=== PATIENT | female | born 1995 | race Two or more races ===

== ENCOUNTER 2017-12-11 03:26 | Observation (INO) | payer BC, SELFPAY ==
[2017-12-11] VITALS (32 sets, daily range): BP systolic 61–125; BP diastolic 30–93; PULSE 64–108; RESP 15–23; TEMP 36.2–37.8; O2SAT 97–100; BMI 36.9
[2017-12-11] MEDS: Dicyclomine 20 MG/2 ML Vial IM (03:40)
[2017-12-11 03:43] LABS: Absolute Lymphocyte Count 3.39 X10^3/ul (0.83-4.51); Absolute Neutrophil Count 4.4 X10^3/uL (2.0-7.7); Basophil# 0.02 X10^3/uL; Basophil% 0.2 % (0-1); Eosinophil# 0.07 X10^3/uL; Eosinophils% 0.8 % (0-5); Hemoglobin 12.8 g/dl (12.0-15.0); Lymphocyte # 3.39 X10^3/ul (4.0); Lymphocyte % 40.3 % (19-41); Mean Corp Hgb Conc 33.7 g/gl (32-36); Mean Corpuscular Hgb 26.5 pg (27.0-32.0); Mean Corpuscular Volume 78.7 fL (81-99); Monocyte# 0.56 X10^3/uL; Monocyte% 6.7 % (0-10); Neutrophil # 4.35 X10^3/uL (2.7-7.7); Neutrophil % 51.8 % (47-70); Platelet Count 243 K/mm3 (150-450); RBC Distribution Width CV 13.5 % (11.6-14.6); RBC Distribution Width SD 38.4 fl (35.1-43.9); Red Blood Count 4.83 M/mm3 (4.2-5.4); White Blood Count 8.4 K/mm3 (4.4-11.0)
--- NOTE | 2017-12-11 03:43 | ED.VIS.GEN ---
History of Present Illness Chief Complaint: Abd Pain Informant: Patient Onset: Hours - less than 1 Context: Sudden Onset - while sleeping; woke her up Timing: Continuous Quality: ache Location: across lower-mid abd, nonlateralizing Current Severity: Severe Maximum Severity: Severe Worsened by: nothing Relieved by: nothing Associated Symptoms: nausea and dry heaves Narrative: No urinary symptoms. Last normal bowel movement was less than 24 hours ago and was unremarkable without blood or melena. No vaginal discharge. Last normal menstrual period was about 3 weeks ago and unremarkable, she has been regular. She states she is trying to get with her . She feels some spasms in her torso, but does not think this radiates into her back. Did not eat anything unusual this past day. Prior similar symptoms: No Past Medical History - Allergies and Home Meds Allergies/Adverse Reactions: Allergies No Known Allergies Allergy (Verified 12/11/17 03:46) Home Medications: Home Medications Medication Instructions Recorded NK [NK] 12/11/17 Primary Care Physician: Care Physician,No Primary [NON-STAFF] - Past Medical History: None Surgical History: no surgical history Lives: Spouse/ Significant Other Smoking Status: Never smoker Drugs: None Review of Systems All systems negative except as indicated General: Denies: Fever Cardiovascular: Denies: Chest pain, Palpitations, Heart racing Respiratory: Denies: Dyspnea Gastrointestinal: Reports: Abdominal pain, Nausea, Vomiting. Denies: Diarrhea, Constipation, Melena, Hematochezia Genitourinary: Denies: Dysuria, Hematuria, Frequency Musculoskeletal: Denies: Neck pain, Back pain, Extremity Pain Physical Exam Vital Signs/Narrative: Vital Signs Temp Pulse Resp BP Pulse Ox 12/11/17 03:27 97.8 F 74 17 118/81 H 100 Inital Vital Signs reviewed: Yes General: Well nourished, Well developed, - - mild painful distress Head: Normocephalic, Atraumatic Eyes: Perrl, EOMI ENT: Moist mucous membranes, No rhinorrhea Neck: Supple, Nontender Cardiovascular: Regular rate, Regular rhythm, No murmurs Respiratory: No distress, CTA bilaterally, Chest nontender Abdomen: Soft, Nondistended, Normal bowel sounds, No masses, Tender - diffusely. Negative for: Guarding, Rebound tenderness Back: Nontender, Normal Inspection. Negative for: CVA tenderness Extremities: Nontender, No edema Skin: Normal color, No rash Neurological: Alert, Oriented x3, Cranial nerves II-XII grossly intact, Normal Strength, Normal Sensation Psychological: - - anxious Diagnostic/Tx/Re-eval Laboratory Tests 12/11/17 12/11/17 12/11/17 03:34 03:34 03:34 WBC 8.4 RBC 4.83 Hgb 12.8 Hct 38.0 MCV 78.7 L MCH 26.5 L MCHC 33.7 RDW 13.5 RDW Differential 38.4 Plt Count 243 MPV 11.0 Immature Gran % (Auto) 0.200 Neut % (Auto) 51.8 Lymph % (Auto) 40.3 [place] % (Auto) 6.7 Eos % (Auto) 0.8 Baso % (Auto) 0.2 Absolute Neuts (auto) 4.4 Absolute Lymphs (auto) 3.39 Total Counted Not Reportable Sodium 139 Potassium 3.5 Chloride 105 Carbon Dioxide 27.0 Anion Gap 7 BUN 11 Creatinine 0.79 Estim Creat Clear Calc 98.81 Est GFR (MDRD) Af Amer 114 Est GFR (MDRD) Non-Af 95 BUN/Creatinine Ratio 13.9 Glucose 90 Calcium 8.9 Total Bilirubin 0.20 AST 15 ALT 17 Alkaline Phosphatase 40 L Total Protein 7.1 Albumin 3.5 Globulin 3.6 Albumin/Globulin Ratio 1.0 Lipase 136 HCG, Quant Serum , Qual POSITIVE H 12/11/17 03:34 WBC RBC Hgb Hct MCV MCH MCHC RDW RDW Differential Plt Count MPV Immature Gran % (Auto) Neut % (Auto) Lymph % (Auto) [place] % (Auto) Eos % (Auto) Baso % (Auto) Absolute Neuts (auto) Absolute Lymphs (auto) Total Counted Sodium Potassium Chloride Carbon Dioxide Anion Gap BUN Creatinine Estim Creat Clear Calc Est GFR (MDRD) Af Amer Est GFR (MDRD) Non-Af BUN/Creatinine Ratio Glucose Calcium Total Bilirubin AST ALT Alkaline Phosphatase Total Protein Albumin Globulin Albumin/Globulin Ratio Lipase HCG, Quant 4798 H Serum , Qual - Medical Decision Making Patient initially had crampy lower abdominal/pelvic pain, but now is saying that it is starting to go up her right side and she is feeling pain radiating into her right shoulder. Labs were drawn and she was given some GI medications and Zofran. This did not make a big difference in her pain, and prior to giving her anything else, she started dropping her blood pressure. The fluid bolus was ordered and given. However, her pressure dropped into the 60s and she appeared very pale. Another fluid bolus was ordered and started, all of her labs appeared normal but the serum test was still pending, she had not given us any urine yet. While I was evaluating the patient, the test returned and it is positive. I called in ultrasound emergently, and I also called Dr. Lund, building construction superintendent for gynecology, she came in and we performed basically at bedside fast exam with the ED screening ultrasound machine. She does not have any fluid in Morison's pouch, but upon careful evaluation around the uterus, she does appear to have some pockets of fluid that do not appear to be intraluminal. Therefore, Dr. Lund prefers to take her to the OR for laparoscopy and definitive diagnosis of possible ruptured ectopic. At this time, we are canceling the cnc maintenance technician because of that. The patient is feeling much better and her pressure is now around 100, we are keeping her monitored closely in the department. Discussed with (s)/Consults: Kevon Critical care time (excluding procedures): 30-74 minutes - 35 min ED Disposition - Plan for ED Patient: Disposition: Acute Care Hospital [facility] Chief Complaint: Abd Pain Diagnosis: Pelvic pain affecting in first trimester, antepartum, Transient hypotension
[2017-12-11] MEDS: Ondansetron 4 MG/2 ML Vial IV (03:44)
[2017-12-11 03:46] LABS: POSITIVE COUNT NO; POSITIVE DIFFERENTIAL NO; POSITIVE MORPHOLOGY NO
--- NOTE | 2017-12-11 03:47 | ED.DCSUM_ITS ---
History of Present Illness Chief Complaint: Abd Pain Informant: Patient Onset: Hours - less than 1 Context: Sudden Onset - while sleeping; woke her up Timing: Continuous Quality: ache Location: across lower-mid abd, nonlateralizing Current Severity: Severe Maximum Severity: Severe Worsened by: nothing Relieved by: nothing Associated Symptoms: nausea and dry heaves Narrative: No urinary symptoms. Last normal bowel movement was less than 24 hours ago and was unremarkable without blood or melena. No vaginal discharge. Last normal menstrual period was about 3 weeks ago and unremarkable, she has been regular. She states she is trying to get with her . She feels some spasms in her torso, but does not think this radiates into her back. Did not eat anything unusual this past day. Prior similar symptoms: No Past Medical History - Allergies and Home Meds Allergies/Adverse Reactions: Allergies No Known Allergies Allergy (Verified 12/11/17 03:46) Home Medications: Home Medications Medication Instructions Recorded NK [NK] 12/11/17 Primary Care Physician: Care Physician,No Primary [NON-STAFF] - Past Medical History: None Surgical History: no surgical history Lives: Spouse/ Significant Other Smoking Status: Never smoker Drugs: None Review of Systems All systems negative except as indicated General: Denies: Fever Cardiovascular: Denies: Chest pain, Palpitations, Heart racing Respiratory: Denies: Dyspnea Gastrointestinal: Reports: Abdominal pain, Nausea, Vomiting. Denies: Diarrhea, Constipation, Melena, Hematochezia Genitourinary: Denies: Dysuria, Hematuria, Frequency Musculoskeletal: Denies: Neck pain, Back pain, Extremity Pain Physical Exam Vital Signs/Narrative: Vital Signs Temp Pulse Resp BP Pulse Ox 12/11/17 03:27 97.8 F 74 17 118/81 H 100 Inital Vital Signs reviewed: Yes General: Well nourished, Well developed, - - mild painful distress Head: Normocephalic, Atraumatic Eyes: Perrl, EOMI ENT: Moist mucous membranes, No rhinorrhea Neck: Supple, Nontender Cardiovascular: Regular rate, Regular rhythm, No murmurs Respiratory: No distress, CTA bilaterally, Chest nontender Abdomen: Soft, Nondistended, Normal bowel sounds, No masses, Tender - diffusely. Negative for: Guarding, Rebound tenderness Back: Nontender, Normal Inspection. Negative for: CVA tenderness Extremities: Nontender, No edema Skin: Normal color, No rash Neurological: Alert, Oriented x3, Cranial nerves II-XII grossly intact, Normal Strength, Normal Sensation Psychological: - - anxious Diagnostic/Tx/Re-eval Laboratory Tests 12/11/17 12/11/17 12/11/17 03:34 03:34 03:34 WBC 8.4 RBC 4.83 Hgb 12.8 Hct 38.0 MCV 78.7 L MCH 26.5 L MCHC 33.7 RDW 13.5 RDW Differential 38.4 Plt Count 243 MPV 11.0 Immature Gran % (Auto) 0.200 Neut % (Auto) 51.8 Lymph % (Auto) 40.3 [facility] % (Auto) 6.7 Eos % (Auto) 0.8 Baso % (Auto) 0.2 Absolute Neuts (auto) 4.4 Absolute Lymphs (auto) 3.39 Total Counted Not Reportable Sodium 139 Potassium 3.5 Chloride 105 Carbon Dioxide 27.0 Anion Gap 7 BUN 11 Creatinine 0.79 Estim Creat Clear Calc 98.81 Est GFR (MDRD) Af Amer 114 Est GFR (MDRD) Non-Af 95 BUN/Creatinine Ratio 13.9 Glucose 90 Calcium 8.9 Total Bilirubin 0.20 AST 15 ALT 17 Alkaline Phosphatase 40 L Total Protein 7.1 Albumin 3.5 Globulin 3.6 Albumin/Globulin Ratio 1.0 Lipase 136 HCG, Quant Serum , Qual POSITIVE H 12/11/17 03:34 WBC RBC Hgb Hct MCV MCH MCHC RDW RDW Differential Plt Count MPV Immature Gran % (Auto) Neut % (Auto) Lymph % (Auto) [facility] % (Auto) Eos % (Auto) Baso % (Auto) Absolute Neuts (auto) Absolute Lymphs (auto) Total Counted Sodium Potassium Chloride Carbon Dioxide Anion Gap BUN Creatinine Estim Creat Clear Calc Est GFR (MDRD) Af Amer Est GFR (MDRD) Non-Af BUN/Creatinine Ratio Glucose Calcium Total Bilirubin AST ALT Alkaline Phosphatase Total Protein Albumin Globulin Albumin/Globulin Ratio Lipase HCG, Quant 4798 H Serum , Qual - Medical Decision Making Patient initially had crampy lower abdominal/pelvic pain, but now is saying that it is starting to go up her right side and she is feeling pain radiating into her right shoulder. Labs were drawn and she was given some GI medications and Zofran. This did not make a big difference in her pain, and prior to giving her anything else, she started dropping her blood pressure. The fluid bolus was ordered and given. However, her pressure dropped into the 60s and she appeared very pale. Another fluid bolus was ordered and started, all of her labs appeared normal but the serum test was still pending, she had not given us any urine yet. While I was evaluating the patient, the test returned and it is positive. I called in ultrasound emergently, and I also called Dr. Lund, production technologist for gynecology, she came in and we performed basically at bedside fast exam with the ED screening ultrasound machine. She does not have any fluid in Morison's pouch, but upon careful evaluation around the uterus, she does appear to have some pockets of fluid that do not appear to be intraluminal. Therefore, Dr. Lund prefers to take her to the OR for laparoscopy and definitive diagnosis of possible ruptured ectopic. At this time, we are canceling the senior games technician because of that. The patient is feeling much better and her pressure is now around 100, we are keeping her monitored closely in the department. Discussed with (s)/Consults: Kevon Critical care time (excluding procedures): 30-74 minutes - 35 min ED Disposition - Plan for ED Patient: Disposition: Acute Care Hospital [facility] Chief Complaint: Abd Pain Diagnosis: Pelvic pain affecting in first trimester, antepartum, Transient hypotension
[2017-12-11 04:08] LABS: AST(SGOT) 15 U/L (15-37); Alanine Aminotransfer ALT/SGPT 17 U/L (13-56); Albumin, Serum 3.5 g/dL (3.2-5.0); Alkaline Phosphatase 40 U/L (45-117); Anion Gap 7 (5-15); BUN 11 mg/dL (7-18); BUN/Creat Ratio 13.9 RATIO (10-20); Calcium,Total 8.9 mg/dL (8.5-10.1); Chloride 105 mmol/L (98-107); Creatinine, Serum 0.79 mg/dL (0.55-1.02); EST Glomerular Filtration Rate 95 mL/min (>60); Est Glom Filt Rate - Afr Amer 114 mL/min (>60); Estimated Creatinine Clearance 98.81 ml/min; Globulin 3.6 g/dL (2.2-4.2); Glucose 90 mg/dL (74-106); Lipase 136 U/L (73-393); Potassium 3.5 mmol/L (3.5-5.1); Protein, Total 7.1 g/dL (6.4-8.2); Sodium Level 139 mmol/L (136-145)
[2017-12-11 04:36] LABS: Pregnancy, Serum, hCG Quali. POSITIVE Negative (0-9 Nonpreg)
[2017-12-11] MEDS: 0.9% Normal Saline 1,000 ML 999 ML IV ×2 (04:40→05:01)
[2017-12-11 05:11] LABS: hCG Titer Quant., Serum 4798 mIU/mL (<9 non-preg)
--- NOTE | 2017-12-11 05:39 | PCM.HP.OB ---
History Date of Admission: 12/11/17 Gestational age: unknown History of this : 22 y.o. G 2 P 1 ws not aware she was till she showed up in the ER with pain starting in the RLQ and radiating all over, than woke her early this morning. She had felt well up till last night, and believes her LMP was 3 weeks ago. Pertinent Past Medical History: x 1 Neck surgery, remote Allergies No Known Allergies Allergy (Verified 12/11/17 03:46) Current Medications: No home meds Sodium Chloride () 1,000 mls @ 999 mls/hr IV .Q1H1M ONE Stop: 12/11/17 06:00 Last Admin: 12/11/17 05:01 Dose: 999 mls/hr Review of Systems Constitutional: Denies: Chills, Fever, Weight Change HEENT: Denies: Head Aches, Sinus Congestion, Sinus Drainage Cardiovascular: Denies: Chest Pain, Palpitations Respiratory: Denies: Cough, Shortness of breath at rest, Sputum production Gastrointestinal: Reports: Abdominal Pain Genitourinary: Denies: Dysuria Neurological: Denies: Numbness, Tingling, Focal weakness Psychiatric: Denies: Anxiety, Depression, Homicidal Ideations, Suicidal Ideations Hematologic/ Lymphatic: Denies: Easy Bruising, Easy Bleeding Physical Exam Vitals: Vital Signs Temp Pulse Resp BP Pulse Ox 97.8 F 75 21 H 105/69 100 12/11/17 03:27 12/11/17 05:07 12/11/17 05:07 12/11/17 05:07 12/11/17 05:07 General: Alert, Oriented x3, Cooperative, No apparent distress Cardiovascular: Regular rate Lungs: Clear to auscultation Abdomen: Obese, Tender Extremities:: No edema Assessment/Plan Active and Suspected Problems Pelvic pain affecting in first trimester, antepartum (Acute) Transient hypotension (Acute) 1. Hypotension 2. RLQ pain becoming diffuse 3. Severe pallor 4. HCG of 5000 Bedside U/S shows heterogenous mass with fluid components in RLQ and uterus with echogenic endometrium but no sac ( transabdominal) P?? Ruptured ectopic most likely. Emergent laparoscopy with possible salpingectomy and or laparotomy Patient and counseled as to need for surgery and risks and benefits of the same. They are willing to proceed
--- NOTE | 2017-12-11 06:00 | FAL_PTH ---
PATIENT: FLORA SARKAR LOC: MS3 U#:[id number] AGE/SX: 22/F ROOM: MS318 RE12/12/[address]: Dr. Kathya Lund MD : 1995 BED: 1 DIS: 12/12/2017 SPEC #: [id number] RECD: 12/13/17 09:21 STATUS: ADAMA RERamirez #: [id number] PATEL: 12/11/17 06:[address]: Kathya Lund DEPT: SURGICAL PATHOLOGY RECD BY: Mitch Dale ENTERED: 12/13/17 12:22 SP TYPE: ECTOPIC OTHR DR: Domi Talavera DO Tissues: ECTOPIC PREG Procedures: Surgery Specimen Level IV HEADER OPERATION: Laparoscopic left partial salpingectomy, ectopic PRE-OP DIAGNOSIS: Ectopic TISSUE SUBMITTED: Left partial fallopian tube MICROSCOPIC DIAGNOSIS Left partial fallopian tube, partial salpingectomy: Fallopian tube with decidua, a few immature chorionic villi and intermediate trophoblasts (ectopic ). RITA:shelly 12/14/17 MICROSCOPIC DESCRIPTION Slides are reviewed. GROSS DESCRIPTION Received in fixative is one container labeled with the patient's name and designated left partial fallopian tube. The specimen consists of a piece of moreau-pink soft tissue measuring 1.5 x 1 x 0.5 cm. Sections do not reveal any mass lesion. The specimen is serially sectioned and submitted entirely in one cassette. / RITA:shelly 12/13/17 TC:5 CPT: 65819
[2017-12-11] MEDS: Bupivacaine 0.25% 30 ML Vial (07:57)
[2017-12-11] MEDS: DiphenhydrAMINE 50 MG/ML Syringe 25 MG IV (08:15)
--- NOTE | 2017-12-11 08:28 | PCM.OPRPT ---
Report of Operation Date of Procedure: 12/11/17 Pre-Operative Diagnosis: 1. Suspected ruptured Ectopic . 2. Hypotension. 3. Abdominal pain Post-Operative Diagnosis: 1. Ruptured Ectopic . 2. Hypotension. 3. Abdominal pain. 4. Large hemoperitoneum Surgery/Procedure Performed:: Left partial sapingectomy. Evacuation of hemoperitoneum -1000cc Description of Surgical Findings:: Large hemoperitoneum with clotting, bleeding from ruptured left etopic . cad engineer: Derick - Daniel Type of Anesthesia:: General - DR. Crenshaw --> Dr. Juan Francisco Blair Specimen's removed: Partial left fallopian tube Drains: Aguila catheter Estimated Blood Loss (mL): 10 Fluids Replaced: 2600 Description of Procedure: The patient was quickly prepped and draped in the dorsal extended ski position and a Aguila catheter placed, as well as a sponge on stick in the vagina. Of note was that the abdomen was visibly more distended than it had been earlier in the ER After glove change, a 5 mm incision was made in the umbilicus and a Verres needle inserted. After confirming placement with a hanging drop method, the 5 mm trochar was inserted and the laparoscope used to confirm intra-abdominal placement with a large hemoperitoneum and blood in both paracolic gutters. The patient was placed in Trendelenberg and a 10mm port placed in the left and a 5mm port in the Right lower quadrant under direct visualisation. The enlarged medial aspect of the left tube was easily seen with a tear in it and active bleeding. The Kleppingers were used to cauterize both proximal and distal portions of the etopic, to secure hemostasis within 5 minutes of peritoneal entry. The rest of mesosalpinx underlying the ectopic was then cauterized and cut sequentially and the specimen brought out. Attention was turned to evacuating the hemoperitoneum and clots which required the use of the 10 and 5mm suction aspirators and the large scoop to break up clots. The patient had to be moved out of Trendelenberg into reverse several times, to help with the evacuation. 2100 ml of Ringers solution was used for rinsing out and breaking up clots, and 3150 ml of bloody fluid was aspirated. Most of the hemoperitoneum was evacuated. The patient started to drop her blood pressures intra-operatively, though her pulse remained under 100. A request for blood transfusion was made in the OR, and an H&H drawn. The intraperitoneal pressure was reduced to 8mm of Hg and inspection made to ensure hemostasis at the salpingectomy site. The Rt adnexa was inspected and appeared normal. All instruments were withdrawn and incisions repaired with 0 Vicryl to the LLQ fascia, and 3-0 Vicryl to all incisions subcuticularly. The patient remained stable as she was taken to the Recovery room where plans were being made for transfusion.
[2017-12-11 08:29] LABS: AST(SGOT) 10 U/L (15-37); Alanine Aminotransfer ALT/SGPT 10 U/L (13-56); Albumin, Serum 2.1 g/dL (3.2-5.0); Alkaline Phosphatase 24 U/L (45-117); Anion Gap 7 (5-15); BUN 12 mg/dL (7-18); BUN/Creat Ratio 17.8 RATIO (10-20); Calcium,Total 6.5 mg/dL (8.5-10.1); Chloride 115 mmol/L (98-107); Creatinine, Serum 0.68 mg/dL (0.55-1.02); EST Glomerular Filtration Rate 113 mL/min (>60); Est Glom Filt Rate - Afr Amer 137 mL/min (>60); Estimated Creatinine Clearance 114.79 ml/min; Globulin 2.1 g/dL (2.2-4.2); Glucose 150 mg/dL (74-106); Potassium 4.6 mmol/L (3.5-5.1); Protein, Total 4.2 g/dL (6.4-8.2); Sodium Level 143 mmol/L (136-145); Total Bilirubin < 0.10 mg/dL (0.20-1.00)
[2017-12-11 09:14] LABS: Hematocrit 24.6 % (37-47); Hemoglobin 7.9 g/dl (12.0-15.0)
[2017-12-11] MEDS: Lactated Ringers 1,000 ML 125 ML IV ×2 (10:03→18:00)
[2017-12-11] MEDS: Morphine 4 MG/ML Syringe 2 MG IV ×4 (11:56→20:42)
[2017-12-11] MEDS: Ibuprofen 600 MG Tablet PO ×2 (13:17→20:44)
[2017-12-11] MEDS: Cefazolin 1 GM/50 ML BAG IV ×2 (14:34→21:41)
[2017-12-11 15:39] LABS: Hematocrit 28.1 % (37-47); Hemoglobin 9.4 g/dl (12.0-15.0); Mean Corp Hgb Conc 33.5 g/gl (32-36); Mean Corpuscular Hgb 27.4 pg (27.0-32.0); Mean Corpuscular Volume 81.9 fL (81-99); Platelet Count 171 K/mm3 (150-450); RBC Distribution Width CV 13.5 % (11.6-14.6); RBC Distribution Width SD 39.2 fl (35.1-43.9); Red Blood Count 3.43 M/mm3 (4.2-5.4); White Blood Count 11.2 K/mm3 (4.4-11.0)
[2017-12-11 15:40] LABS: Absolute Lymphocyte Count 1.65 X10^3/ul (0.83-4.51); Absolute Neutrophil Count 8.8 X10^3/uL (2.0-7.7); Basophil# 0.01 X10^3/uL; Basophil% 0.1 % (0-1); Lymphocyte # 1.65 X10^3/ul (4.0); Lymphocyte % 14.8 % (19-41); Mean Platelet Vol. 11.2 fl (6.2-12.0); Monocyte# 0.63 X10^3/uL; Monocyte% 5.6 % (0-10); Neutrophil # 8.83 X10^3/uL (2.7-7.7); Neutrophil % 79.1 % (47-70); POSITIVE COUNT NO; POSITIVE DIFFERENTIAL NO; POSITIVE MORPHOLOGY NO
[2017-12-11 21:06] LABS: Bacteria 0 SEEN /hpf (None Seen); Mucous, Urine 0 SEEN /hpf (<or=2+); Red Blood Cells-Urine 0 SEEN /hpf (0-5)
[2017-12-11 21:07] LABS: Color, Urine Straw (Yellow); Glucose, Dipstick Normal (Normal); Ketone-Dipstick Negative (Negative); Leukocyte Esterase-Dipstick 100 /ul (Negative); Nitrite-Dipstick Negative (Negative); Occult Blood-Urine 10 /ul (Negative); Protein-Dipstick Negative (Negative); Urine Bilirubin Dipstick Negative (Negative); Urine Clarity Clear (Clear); Urine Urobilinogen Normal (Normal)
[2017-12-11 21:17] LABS: Squamous Epithelial Cells - UA 0-5 SEEN /hpf (5-10); White Blood Cells 0-5 SEEN /hpf (0-5)
[2017-12-12 02:00] VITALS: BP 104/62; PULSE 90; RESP 16; TEMP 37.1; O2SAT 98
[2017-12-12] MEDS: Morphine 4 MG/ML Syringe 2 MG IV (02:39)
[2017-12-12] MEDS: Lactated Ringers 1,000 ML 75 ML IV (03:04)
--- NOTE | 2017-12-12 03:24 | NURSING ---
Pt. up with this nurse walking halls. Tolerated well.
[2017-12-12] MEDS: Ibuprofen 600 MG Tablet PO (06:34)
[2017-12-12 06:46] LABS: Hematocrit 26.6 % (37-47); Hemoglobin 8.7 g/dl (12.0-15.0); Mean Corp Hgb Conc 32.7 g/gl (32-36); Mean Corpuscular Hgb 26.7 pg (27.0-32.0); Mean Corpuscular Volume 81.6 fL (81-99); Mean Platelet Vol. 10.9 fl (6.2-12.0); Platelet Count 157 K/mm3 (150-450); RBC Distribution Width CV 13.9 % (11.6-14.6); RBC Distribution Width SD 41.4 fl (35.1-43.9); Red Blood Count 3.26 M/mm3 (4.2-5.4); White Blood Count 8.4 K/mm3 (4.4-11.0)
[2017-12-12 06:56] LABS: Scan Indicated on CBC? Y/N NO
[2017-12-12 07:41] LABS: hCG Titer Quant., Serum 1006 mIU/mL (<9 non-preg)
[2017-12-12 07:48] LABS: Calcium,Total 7.8 mg/dL (8.5-10.1)
[2017-12-12 09:26] VITALS: BP 115/61; PULSE 85; RESP 18; TEMP 36.9; O2SAT 100
--- NOTE | 2017-12-12 10:18 | PCM.PN.OB ---
Patient Problems: Active and Suspected Problems Pelvic pain affecting in first trimester, antepartum (Acute) Transient hypotension (Acute) Subjective: Felling quite well this am. had breakfast, no nausea. Flatus ++. Simethicone very helpful with gas pains. - Physical Exam General: Alert, Oriented x3, Cooperative HEENT: Atraumatic Oral: Moist Mucosa Lungs: Clear to auscultation Cardiovascular: Regular rate, Regular Rhythm Abdomen: Bowel Sounds Present, Soft, Non Tender, Distended - mild distension present. Extremities: No edema, No Calf Tenderness Skin: No rashes, No breakdown Musculoskeletal: No Tenderness to Palpation of Joints or Extremities Psych/Mental Status: Normal Affect, Appropriate Vital Signs Temp Pulse Resp BP Pulse Ox 98.5 F 85 18 115/61 100 12/12/17 09:26 12/12/17 09:26 12/12/17 09:26 12/12/17 09:26 12/12/17 09:26 Oxygen Delivery Method Room Air Weight: 100.7 kg Body Mass Index (BMI) 36.9 Intake and Output for Last 24 Hours 12/10/17 12/11/17 12/12/17 23:59 23:59 23:59 Intake Total 4993 / 4993 1033 / 1033 Output Total 975 / 975 750 / 750 Balance 4018 / 4018 283 / 283 Laboratory Tests Past 24 Hrs 12/11/17 12/11/17 12/11/17 04:40 15:15 21:00 WBC 11.2 H RBC 3.43 L Hgb 9.4 L Hct 28.1 L MCV 81.9 MCH 27.4 MCHC 33.5 RDW 13.5 RDW Differential 39.2 Plt Count 171 MPV 11.2 Immature Gran % (Auto) 0.400 Neut % (Auto) 79.1 H Lymph % (Auto) 14.8 L [place] % (Auto) 5.6 Eos % (Auto) 0.0 Baso % (Auto) 0.1 Absolute Neuts (auto) 8.8 H Absolute Lymphs (auto) 1.65 Total Counted Not Reportable Calcium HCG, Quant Urine Color Straw Urine Clarity Clear Urine pH 6.0 Ur Specific [place] 1.010 Urine Protein Negative Urine Glucose (UA) Normal Urine Ketones Negative Urine Occult Blood 10 H Urine Nitrite Negative Urine Bilirubin Negative Urine Urobilinogen Normal Ur Leukocyte Esterase 100 H Urine RBC 0 SEEN Urine WBC 0-5 SEEN Ur Squamous Epith Cells 0-5 SEEN Urine Bacteria 0 SEEN Urine Mucus 0 SEEN Crossmatch See Detail 12/12/17 12/12/17 12/12/17 05:52 05:52 05:52 WBC 8.4 RBC 3.26 L Hgb 8.7 L Hct 26.6 L MCV 81.6 MCH 26.7 L MCHC 32.7 RDW 13.9 RDW Differential 41.4 Plt Count 157 MPV 10.9 Immature Gran % (Auto) Neut % (Auto) Lymph % (Auto) [place] % (Auto) Eos % (Auto) Baso % (Auto) Absolute Neuts (auto) Absolute Lymphs (auto) Total Counted Calcium 7.8 L HCG, Quant 1006 H Urine Color Urine Clarity Urine pH Ur Specific [place] Urine Protein Urine Glucose (UA) Urine Ketones Urine Occult Blood Urine Nitrite Urine Bilirubin Urine Urobilinogen Ur Leukocyte Esterase Urine RBC Urine WBC Ur Squamous Epith Cells Urine Bacteria Urine Mucus Crossmatch Medical Necessity - Tobacco Use Smoking Status: Never smoker Assessment/Plan Active and Suspected Problems Pelvic pain affecting in first trimester, antepartum (Acute) Transient hypotension (Acute) . s/P Laparoscopic partial LEFT salpingectomy for ruptured ectopic - doing very well clinically Evacuation of large hemoperitoneum Anemia- post hemorrhagic ( s/p transfusion 2 units) Hypocalcemia - fluid manipulation ++ P// Home today post - lunch. Discontinue IVs. Motrin & bedtime [place] for pain management, Simethicone Discussed Ectopic - findings, increased risk for the future and how to avert a repeat surgical episode. 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
[2017-12-12 11:45] VITALS: O2SAT 99
[2017-12-12] MEDS: Magnesium Hydroxide 30 ML UDC 15 ML PO (11:57)
[2017-12-12] MEDS: Calcium Carbonate 500 MG Tablet PO (11:58)
--- NOTE | 2017-12-15 07:42 | PCM.DC.SUM ---
Discharge Date and Diagnosis Date of Admission: 12/11/17 Date of Discharge: 12/12/17 - Primary Discharge Diagnosis Ruptured Ectopic Hemorrhagic shock Hemoperitoneum Hospital Course and Treatment Imaging Results: Bedside scan showing heterogenous material in pelvis Operations: - - L Summary of Care Provided: TPt also discharged on FeSo4 bid and ascorbic acid 500mg bid Home Medications: Medications to take at Discharge Calcium Carbonate [Tums] 500 mg PO BIDCM #30 tab 12/12/17 Hydrocodone Bitart/Apap 5-325 [[place] 5/325] 1 tab PO Q6H PRN PRN 7 Days #10 tab MDD 4 12/12/17 SimETHICONE [Mylicon] 80 mg PO Q4H PRN PRN #30 tab 12/12/17 Following Prescrptions Were Given to Patient: SimETHICONE [Mylicon] 80 mg PO Q4H PRN PRN #30 tab PRN Reason: Gas pain Hydrocodone Bitart/Apap 5-325 [[place] 5/325] 1 tab PO Q6H PRN PRN 7 Days #10 tab MDD 4 PRN Reason: Severe Pain (6-05/18) Calcium Carbonate [Tums] 500 mg PO BIDCM #30 tab Primary Care Physician: Domi Talavera MD [Primary Care Provider] - Medical Necessity - Tobacco Use Smoking Status: Never smoker Meaningful Use Info Meaningful Use Diagnoses (Choose all that apply): None applicable
--- NOTE | 2017-12-15 07:47 | DS.PCM_ITS ---
Discharge Date and Diagnosis Date of Admission: 12/11/17 Date of Discharge: 12/12/17 - Primary Discharge Diagnosis Ruptured Ectopic Hemorrhagic shock Hemoperitoneum Hospital Course and Treatment Imaging Results: Bedside scan showing heterogenous material in pelvis Operations: - - L Summary of Care Provided: TPt also discharged on FeSo4 bid and ascorbic acid 500mg bid Home Medications: Medications to take at Discharge Calcium Carbonate [Tums] 500 mg PO BIDCM #30 tab 12/12/17 Hydrocodone Bitart/Apap 5-325 [[place] 5/325] 1 tab PO Q6H PRN PRN 7 Days #10 tab MDD 4 12/12/17 SimETHICONE [Mylicon] 80 mg PO Q4H PRN PRN #30 tab 12/12/17 Following Prescrptions Were Given to Patient: SimETHICONE [Mylicon] 80 mg PO Q4H PRN PRN #30 tab PRN Reason: Gas pain Hydrocodone Bitart/Apap 5-325 [[place] 5/325] 1 tab PO Q6H PRN PRN 7 Days #10 tab MDD 4 PRN Reason: Severe Pain (6-05/18) Calcium Carbonate [Tums] 500 mg PO BIDCM #30 tab Primary Care Physician: Domi Talavera MD [Primary Care Provider] - Medical Necessity - Tobacco Use Smoking Status: Never smoker Meaningful Use Info Meaningful Use Diagnoses (Choose all that apply): None applicable
== END 2017-12-12 12:40 | disposition home or self-care (01) ==
LOC: ED 05:29 → SDC 05:38 → AC 05:39 → SDC 12-13 13:06 → MS3 12-13 13:06
PROVIDERS: Anesthesiology; Admitting Provider Obstetrics & Gynecology Gynecology; Emergency Provider Emergency Medicine; Family Provider Family Medicine; PCP Family Medicine; Visit Provider Obstetrics & Gynecology Gynecology
PROC: 10T24ZZ Resection of Products of Conception, Ectopic, Percutaneous Endoscopic Approach (ICD-10-PCS; CPT 59150; principal; 2017-12-11 06:00)
DX: O00.102 Left tubal pregnancy without intrauterine pregnancy (principal); I95.9 Hypotension, unspecified; K66.1 Hemoperitoneum; R57.8 Other shock
CPT/HCPCS: 59151; 36415; 36430; 80053; 81001; 82310; 83690; 84702; 84703; 85014; 85018; 85025; 85027; 86850; 86900; 86920; 88305; 94762; 96361; 96365; 96366; 96372; 96375; 96376; 99218; 99282; J7030; J7040; J7120; P9016; A4216; G0378

== ENCOUNTER → 2018-02-08 08:08 | Outpatient (CLI) | payer BC, SELFPAY ==
[2018-02-08 09:09] LABS: hCG Titer Quant., Serum < 1 mIU/mL (<9 non-preg)
== END ==
PROVIDERS: Family Provider Family Medicine; PCP Family Medicine; Visit Provider Obstetrics & Gynecology Gynecology
DX: O09.299 Supervision of pregnancy with other poor reproductive or obstetric history, unspecified trimester (principal)
CPT/HCPCS: 36415; 84702

== ENCOUNTER 2019-01-15 18:27 | Emergency (ER) | payer BC, SELFPAY ==
[2019-01-15 18:27] VITALS: BP 156/85; PULSE 97; RESP 18; TEMP 36.7; O2SAT 100; BMI 34.1
[2019-01-15 20:06] LABS: Bacteria 0 SEEN /hpf (None Seen); Mucous, Urine 0 SEEN /hpf (<or=2+); Red Blood Cells-Urine 0 SEEN /hpf (0-5); Squamous Epithelial Cells - UA 0 SEEN /hpf (5-10); White Blood Cells 0 SEEN /hpf (0-5)
[2019-01-15 20:09] LABS: Color, Urine Yellow (Yellow); Glucose, Dipstick Normal (Normal); Ketone-Dipstick Negative (Negative); Leukocyte Esterase-Dipstick Negative /ul (Negative); Nitrite-Dipstick Negative (Negative); Occult Blood-Urine Negative /ul (Negative); Protein-Dipstick Negative (Negative); Urine Bilirubin Dipstick Negative (Negative); Urine Clarity Clear (Clear); Urine Urobilinogen Normal (Normal)
[2019-01-15 20:30] LABS: Absolute Lymphocyte Count 1.09 X10^3/ul (0.83-4.51); Absolute Neutrophil Count 10.7 X10^3/uL (2.0-7.7); Basophil# 0.01 X10^3/uL; Basophil% 0.1 % (0-1); Eosinophil# 0.02 X10^3/uL; Eosinophils% 0.2 % (0-5); Hematocrit 39.7 % (37-47); Hemoglobin 13.2 g/dl (12.0-15.0); Lymphocyte # 1.09 X10^3/ul (4.0); Lymphocyte % 8.6 % (19-41); Mean Corp Hgb Conc 33.2 g/gl (32-36); Mean Corpuscular Hgb 25.9 pg (27.0-32.0); Mean Corpuscular Volume 77.8 fL (81-99); Monocyte# 0.81 X10^3/uL; Monocyte% 6.4 % (0-10); Neutrophil % 84.5 % (47-70); Platelet Count 211 K/mm3 (150-450); RBC Distribution Width CV 13.2 % (11.6-14.6); RBC Distribution Width SD 37.3 fl (35.1-43.9); White Blood Count 12.7 K/mm3 (4.4-11.0)
[2019-01-15 20:33] LABS: POSITIVE COUNT NO; POSITIVE DIFFERENTIAL NO; POSITIVE MORPHOLOGY NO
[2019-01-15 21:08] LABS: Internal QC Validated? YES +Cl - CLEAR BKGD; Pregnancy, Serum, hCG Quali. NEGATIVE Negative
--- NOTE | 2019-01-15 21:21 | ED.DCSUM_ITS ---
- ER Visit Summary Date of Service: 01/15/19 Chief Complaint: [Back pain] History of Present Illness: The patient is a 24 F [presents the emergency department with back pain that started 2 days ago. Patient states that while at work she had a low-grade temperature up to 100.7 today. Patient also was noted that her blood pressures been little bit elevated. Patient took some ibuprofen but does not really seem to help with her back. She has had a little bit of dysuria at times but no urgency or frequency. She denies hematuria. Patient denies any abdominal pain. She is had no nausea or vomiting. Patient did take a home test yesterday but it was negative. Patient's last was repaired was January 03. Patient denies any injury to her back. She denies any pain rating down her legs. She denies saddle anesthesia. Patient does complain of a sore throat.] Physical Examination: [HEENT-PERRLA, EOMI. Cranial nerves II through XII grossly intact. TMs clear. Mucous membranes moist. No adenopathy. Patient has pharyngeal erythema. No exudates. Uvula in the midline without trismus. Cardiovascular-regular rate and rhythm without murmur or ectopy Lungs-clear to auscultation, chest wall stable without crepitus or subcu emphysema Abdomen-normoactive bowel sounds, soft, nontender, no rebound or rigidity, no peritoneal signs. Back exam-patient has diffuse tenderness over the lumbar spine and paraspinal musculature bilaterally. No bony step-offs. Negative straight leg raises. Deep tendon reflexes are plus 2 out of 4 bilaterally. Extremities-intact ?4, normal range of motion, normal pulses, atraumatic] Test Results: [CBC with differential obtained showed a white count of 12.7, hemoglobin 13, hematocrit 40, placed 211. Urinalysis was normal. Serum was negative. Rapid strep screen was positive] Emergency Department Course and Treatment: [With amoxicillin.] Treatment Plan: [Patient will be on a prescription for amoxicillin and naproxen. Patient advised to follow-up with primary care physician 3 to 5 days.] Disposition: [Discharged home in stable condition] Impression: [Strep pharyngitis Atraumatic back pain] This note was generated with [employer] dictation software. It may contain incorrect words, spelling, and punctuation that were not noted in review of the chart prior to signing ED Disposition - Plan for ED Patient: Referrals: Domi Tolentino DO [Primary Care Provider] -
--- NOTE | 2019-01-15 21:21 | ED.DEP ---
ED Disposition - Plan for ED Patient: Instructions: ED Neck Back Pain General, ED Strep Pharyngitis Conf Prescriptions: Naproxen [Naprosyn] 500 mg PO BID PRN #20 tab Amoxicillin 500 mg PO TID #30 tab Referrals: Domi Tolentino DO [Primary Care Provider] - 3-5 Days
[2019-01-15] MEDS: AMOXICILLIN 500 MG CAPSULE PO (21:31)
[2019-01-15] MEDS: Naproxen 250 MG Tablet 500 MG PO (21:31)
[2019-01-15 21:39] VITALS: BP 138/77; PULSE 108; RESP 16; O2SAT 98
== END 2019-01-15 21:40 | disposition home or self-care (01) ==
PROVIDERS: Emergency Provider Emergency Medicine; Family Provider Family Medicine; PCP Family Medicine
DX: J02.0 Streptococcal pharyngitis (principal); M54.5 Low back pain
CPT/HCPCS: 81001; 84703; 85025; 87880; 99284; A4216

== ENCOUNTER → 2020-09-20 10:13 | Outpatient (CLI) | payer SELFPAY ==
[2020-09-20 12:34] LABS: Cholesterol 165 mg/dL (200); Glucose 86 mg/dL (74-106); High Density Lipoprotein 66 mg/dL; Triglycerides 66 mg/dL; Very Low Density Lipoprotein 13 mg/dL (5-40)
== END ==
PROVIDERS: PCP Family Medicine; Referring Provider Family Medicine; Visit Provider Family Medicine
DX: Z00.00 Encounter for general adult medical examination without abnormal findings (principal)
CPT/HCPCS: 36415; 80061; 82947

== ENCOUNTER 2021-10-23 16:41 | Outpatient (CLI) | payer OTHER, SELFPAY ==
--- NOTE | 2021-10-23 16:43 | RAD_ITS ---
STUDY: X-RAY - RIGHT KNEE REASON FOR EXAM: Female, 26 years old. Pain after a fall TECHNIQUE: 4 view(s) of the knee. COMPARISON: None. FINDINGS: Normal visualized distal femur. Normal visualized proximal tibia and fibula. Normal proximal tibiofibular articulation. Normal medial femorotibial compartment. Normal lateral femorotibial compartment. Normal patellofemoral articulation. The soft tissue structures are unremarkable. RAD/Knee 4 or More Views IMPRESSION: Normal x-ray examination of the knee. Electronically Signed: Bryan Watkins MD at 17:10 EDT ,
--- NOTE | 2021-10-23 16:43 | RAD_ITS ---
STUDY: X-RAY - LEFT WRIST REASON FOR EXAM: Female, 26 years old. Pain after a fall TECHNIQUE: 3 view(s) of the wrist were obtained. COMPARISON: None. FINDINGS: The borders of the scaphoid are clearly defined but there is subtle lucency in the scaphoid waist and a nondisplaced fracture cannot be excluded based on the plain film. If there is strong clinical suspicion of a fracture, recommend further evaluation with dedicated scaphoid view or CT. Normal visualized distal radius and ulna. Normal remaining radiocarpal articulation. Normal distal radioulnar articulation. Normal carpal bones. Normal carpal articulations. Normal carpometacarpal articulation of the thumb. Normal second through fifth carpometacarpal articulations. Normal visualized metacarpal bones. There is mild soft tissue swelling RAD/Wrist min 3 Views IMPRESSION: Although the cortical borders of the scaphoid are intact there is subtle lucency in the scaphoid waist and a subtle fracture cannot be completely excluded, there is a small amount of soft tissue swelling. Electronically Signed: Bryan Watkins MD at 17:07 EDT ,
--- NOTE | 2021-10-23 16:43 | RAD_ITS ---
STUDY: X-RAY - RIGHT ANKLE REASON FOR EXAM: Female, 26 years old. Pain after a fall TECHNIQUE: 3 view(s) of the ankle. COMPARISON: None. FINDINGS: Normal visualized distal tibia and fibula. Normal medial and lateral malleoli. Normal tibiotalar articulation and ankle mortise. There is an accessory ossicle adjacent to the distal fibula Normal visualized talus and calcaneus. The visualized subtalar, talonavicular, calcaneocuboid and tarsal articulations are normal. The soft tissue structures are unremarkable. RAD/Ankle min 3 Views IMPRESSION: Normal x-ray examination of the ankle. Electronically Signed: Bryan Watkins MD at 17:10 EDT ,
== END 2021-10-23 23:59 | disposition home or self-care (01) ==
LOC: MTRAD 16:43
PROVIDERS: PCP Family Medicine; Referring Provider Physician Assistant; Visit Provider Physician Assistant
DX: M25.532 Pain in left wrist (principal); M25.561 Pain in right knee; M25.571 Pain in right ankle and joints of right foot
CPT/HCPCS: 73110; 73564; 73610